=== PATIENT | female | born 1960 | race Two or more races ===

== ENCOUNTER → 2024-08-13 | Outpatient (CLI) | payer BC, SELFPAY ==
--- NOTE | 2024-08-13 09:17 | XR_ITS ---
Examination: CT chest, without intravenous contrast. Sagittal and coronal 2-D reconstructions. Exam date and time: August 13, 2024 1023 hours INDICATIONS: CT chest February 16, 2024 3 mm pulmonary nodule left lower lobe 10 mm pulmonary nodule left lower lobe, chronic SOB coughing beginning May 2024 CTDI:vol (mGy) 13.9 DLP: (mGycm) 483 Technique: Multiple 3.0 mm axial sections of the chest to been obtained. Bone and lung density settings are obtained. Sagittal and coronal 2-D reconstructions have been obtained. Low dose protocols were performed. One or more of the following dose reduction techniques were used; automated exposure control, adjustment of the mA and/or KV according to patient size, use of iterative reconstruction technique. Findings: Small nonspecific mediastinal lymph nodes No thoracic aortic aneurysm dilatation Pulmonary artery segments are not enlarged 4 mm pulmonary nodule left upper lobe image 90 Pulmonary fibrosis pattern 3 mm pulmonary nodule left lower lobe image 235 10 mm pulmonary nodule left lower lobe image 239 No focal liver or splenic lesions Absent gallbladder No pancreatic or adrenal mass Significant renal parenchymal scar formation IMPRESSION: Pulmonary nodules as above, suggest continued 6 month follow-up CT chest without contrast
== END | disposition home or self-care (01) ==
PROVIDERS: PCP Internal Medicine; Referring Provider Nurse Practitioner Women's Health; Visit Provider Nurse Practitioner Women's Health
DX: R91.8 Other nonspecific abnormal finding of lung field (principal)
CPT/HCPCS: 71250

== ENCOUNTER → 2024-08-16 | Outpatient (CLI) | payer BC, SELFPAY ==
[2024-08-16 09:39] LABS: Basophils # (Auto) 0.1 Thou/mm3 (0.0-0.2); Basophils % (Auto) 1 % (0-2.5); Eosinophils # (Auto) 0.4 Thou/mm3 (0.0-0.5); Eosinophils % (Auto) 5 % (0-10); Hematocrit 41.9 % (36.0-46.0); Hemoglobin 13.8 g/dL (12.0-16.0); Immature Granulocytes % (Auto) 0 % (0-0); Immature Granulocytes Auto 0.02 Thou/mm3 (0.00-0.00); Lymphocytes # (Auto) 1.9 Thou/mm3 (1.0-4.8); Lymphocytes % (Auto) 22 % (10-50); Mean Corpuscular HGB Conc 32.9 g/dl (31.0-37.0); Mean Corpuscular Hemoglobin 28.7 pg (25.0-35.0); Mean Corpuscular Volume 87 fL (80-100); Monocytes # (Auto) 0.5 Thou/mm3 (0.0-0.8); Monocytes % (Auto) 6 % (0-12); Neutrophils # (Auto) 5.9 Thou/mm3 (1.8-7.7); Neutrophils % (Auto) 67 % (37-80); Nucleated Red Blood Cell % 0 /100 WBC (0); Platelet Count 367 Thou/mm3 (140-440); RDW Standard Deviation 42.8 fL (36.4-46.3); Red Blood Count 4.81 Miln/mm3 (4.00-5.20); White Blood Count 8.8 Thou/mm3 (3.6-11.0)
[2024-08-16 09:54] LABS: Collection Type, Urine Clean Catch
[2024-08-16 09:55] LABS: Glucose Estimated Average 108 mg/dL (80-131); Hemoglobin A1C 5.4 % Hgb (4.8-6.0)
[2024-08-16 10:05] LABS: Alanine Aminotransferase 21 U/L (10-49); Albumin, Serum 4.5 gm/dL (3.4-4.8); Albumin/Globulin Ratio 1.5 (1.2-2.2); Alkaline Phosphatase 94 U/L (46-116); Anion Gap 6 (7-16); Aspartate Amino Transferase 19 U/L (0-34); BUN/Creatinine Ratio 15 Ratio (12-20); Bilirubin,Total 0.4 mg/dL (0.3-1.2); Blood Urea Nitrogen 15 mg/dL (9-23); Calcium 9.4 mg/dL (8.3-10.6); Calcium (Corrected) 9.4 mg/dL (8.5-10.1); Carbon Dioxide 25.6 mMol/L (20.0-31.0); Chloride 107 mMol/L (98-107); Cholesterol 191 mg/dL (132-200); Globulin 3.1 gm/dL (2.3-3.5); Glucose 105 mg/dL (74-106); HDL Cholesterol 38 mg/dL (40-60); LDL Cholesterol,Calculated 121 mg/dL (0-130); Osmolality,Calculated 278 (275-295); Potassium 3.9 mMol/L (3.4-5.1); Sodium 139 mMol/L (136-145); Thyroid Stimulating Hormone 8.44 uIU/mL (0.55-4.78); Total Protein 7.6 gm/dL (5.7-8.2); Triglycerides 160 mg/dL (30-150); Uric Acid 5.6 mg/dL (3.1-7.8); eGFR > 60 See Note
[2024-08-16 10:10] LABS: Bacteria,Urine Rare; Bilirubin,Urine Negative (Negative); Blood,Urine Negative (Negative); Clarity,Urine Clear (Clear/Hazy); Color,Urine Lt-Yellow (Lt Yel-Yel); Glucose, Urine Negative (Negative); Ketones,Urine Negative (Negative); Leukocyte Esterase,Urine Positive (Negative); Nitrite,Urine Negative (Negative); Protein,Urine Trace (Neg - Trace); RBC,Urine 4 /hpf (0-3); Specific Gravity,Urine 1.018 (1.001-1.035); Squamous Epithelial Cell,Urine 2 /hpf (0-5); Urobilinogen,Urine Negative mg/dL (0.0-1.0); WBC,Urine 26 /hpf (0-5)
[2024-08-16 10:11] LABS: Vitamin B12 476 pg/mL (211-911); Vitamin D 25 Hydroxy Total 25.1 ng/mL (7.3-40.2)
== END | disposition home or self-care (01) ==
LOC: COPL 09:09
PROVIDERS: PCP Internal Medicine; Referring Provider Internal Medicine; Visit Provider Internal Medicine
DX: Z00.00 Encounter for general adult medical examination without abnormal findings (principal); I10 Essential (primary) hypertension; E03.9 Hypothyroidism, unspecified
CPT/HCPCS: 36415; 80053; 80061; 81001; 82306; 82607; 83036; 84443; 84550; 85025

== ENCOUNTER → 2024-09-18 | Outpatient (CLI) | payer BC, SELFPAY ==
--- NOTE | 2024-09-18 11:45 | XR_ITS ---
Examination: Screening digital mammography, bilateral Computer aided detection 3-D breast Tomosynthesis, bilateral Date and time of exam: September 18, 2024 1059 hours Compared to mammograms dating to 05/18/2006 Indication: Screening Technique: Nonmagnified MLO, CC views of the breasts to been obtained, reconstructed from 3-D Tomosynthesis images. R2 computer aided detection program utilized for evaluation of suspicious masses and/or abnormal calcifications. 3-D Tomosynthesis images obtained. Findings: Scattered areas of fibroglandular density. No interval suspicious masses Benign calcifications Impression: BI-RADS category II: Benign Findings. Recommend 1 year follow-up mammogram.
--- NOTE | 2024-09-18 12:00 | XR_ITS ---
Examination: Bone densitometry Date and time of exam:September 10, 2024 1121 hours INDICATIONS: Menopause age 35 vitamin D 4 years levothyroxine 10 years Technique: Lumbar spine and hip total bone mineralization values of an calculated. Peak reference and age match control results have been displayed. Findings: Lumbar spine total bone mineralization is0.832 gm/cm2. This is 2.0 standard deviations below peak reference. This is 0.2 standard deviations below age-matched controls. Hip total bone mineralization is 0.937 gm/cm2 This is 0.2 standard deviations below peak reference. This is 0.9 standard deviations above age-matched controls Impression: There is osteopenia based on lumbar spine measurements. There is osteopenia based on hip measurements Lumbar mineralization is increase 10.4% compared with August 25, 2022 Hip mineralization is decreased 2.9% compared with August 25, 2022
== END | disposition home or self-care (01) ==
LOC: CDIM 10:42
PROVIDERS: PCP Internal Medicine; Referring Provider Internal Medicine; Visit Provider Internal Medicine
DX: Z12.31 Encounter for screening mammogram for malignant neoplasm of breast (principal); R92.323 Mammographic fibroglandular density, bilateral breasts; R92.1 Mammographic calcification found on diagnostic imaging of breast; M85.89 Other specified disorders of bone density and structure, multiple sites
CPT/HCPCS: 77063; 77067; 77080

== ENCOUNTER → 2024-11-07 | Outpatient (CLI) | payer BC, SELFPAY ==
[2024-11-07 10:07] LABS: Collection Type, Urine Clean Catch
[2024-11-07 10:42] LABS: Basophils # (Auto) 0.1 Thou/mm3 (0.0-0.2); Basophils % (Auto) 1 % (0-2.5); Eosinophils # (Auto) 0.5 Thou/mm3 (0.0-0.5); Eosinophils % (Auto) 6 % (0-10); Hematocrit 42.3 % (36.0-46.0); Hemoglobin 13.5 g/dL (12.0-16.0); Immature Granulocytes % (Auto) 0 % (0-0); Immature Granulocytes Auto 0.02 Thou/mm3 (0.00-0.00); Lymphocytes # (Auto) 2.1 Thou/mm3 (1.0-4.8); Lymphocytes % (Auto) 25 % (10-50); Mean Corpuscular HGB Conc 31.9 g/dl (31.0-37.0); Mean Corpuscular Hemoglobin 28.2 pg (25.0-35.0); Mean Corpuscular Volume 88 fL (80-100); Monocytes # (Auto) 0.6 Thou/mm3 (0.0-0.8); Monocytes % (Auto) 7 % (0-12); Neutrophils # (Auto) 5.3 Thou/mm3 (1.8-7.7); Neutrophils % (Auto) 62 % (37-80); Nucleated Red Blood Cell % 0 /100 WBC (0); Platelet Count 358 Thou/mm3 (140-440); RDW Standard Deviation 45.3 fL (36.4-46.3); Red Blood Count 4.79 Miln/mm3 (4.00-5.20); White Blood Count 8.5 Thou/mm3 (3.6-11.0)
[2024-11-07 10:44] LABS: Bilirubin,Urine Negative (Negative); Blood,Urine Negative (Negative); Clarity,Urine Clear (Clear/Hazy); Color,Urine Lt-Yellow (Lt Yel-Yel); Glucose, Urine Negative (Negative); Ketones,Urine Negative (Negative); Leukocyte Esterase,Urine Positive (Negative); Nitrite,Urine Negative (Negative); PH,Urine 6.5 (5.0-7.0); Protein,Urine Trace (Neg - Trace); RBC,Urine 2 /hpf (0-3); Specific Gravity,Urine 1.022 (1.001-1.035); Squamous Epithelial Cell,Urine 4 /hpf (0-5); Urobilinogen,Urine Negative mg/dL (0.0-1.0); WBC,Urine 10 /hpf (0-5)
[2024-11-07 10:51] LABS: Glucose Estimated Average 103 mg/dL (80-131); Hemoglobin A1C 5.2 % Hgb (4.8-6.0)
[2024-11-07 10:58] LABS: Vitamin B12 614 pg/mL (211-911); Vitamin D 25 Hydroxy Total 34.6 ng/mL (7.3-40.2)
[2024-11-07 11:08] LABS: Alanine Aminotransferase 23 U/L (10-49); Albumin, Serum 4.2 gm/dL (3.4-4.8); Albumin/Globulin Ratio 1.4 (1.2-2.2); Alkaline Phosphatase 110 U/L (46-116); Anion Gap 9 (7-16); Aspartate Amino Transferase 23 U/L (0-34); BUN/Creatinine Ratio 19 Ratio (12-20); Bilirubin,Total 0.5 mg/dL (0.3-1.2); Blood Urea Nitrogen 17 mg/dL (9-23); Calcium 9.4 mg/dL (8.3-10.6); Calcium (Corrected) 9.4 mg/dL (8.5-10.1); Carbon Dioxide 25.8 mMol/L (20.0-31.0); Cardiac Risk Estimate 5.4 RATIO (3.7-5.6); Chloride 107 mMol/L (98-107); Cholesterol 206 mg/dL (132-200); Creatinine (Component) 0.9 mg/dL (0.6-1.3); Glucose 94 mg/dL (74-106); HDL Cholesterol 38 mg/dL (40-60); LDL Cholesterol,Calculated 139 mg/dL (0-130); Osmolality,Calculated 284 (275-295); Potassium 4.5 mMol/L (3.4-5.1); Sodium 142 mMol/L (136-145); Thyroid Stimulating Hormone 6.31 uIU/mL (0.55-4.78); Total Protein 7.2 gm/dL (5.7-8.2); Triglycerides 145 mg/dL (30-150); eGFR > 60 See Note
== END | disposition home or self-care (01) ==
LOC: COPL 09:14
PROVIDERS: PCP Internal Medicine; Referring Provider Internal Medicine; Visit Provider Internal Medicine
DX: Z00.00 Encounter for general adult medical examination without abnormal findings (principal); I10 Essential (primary) hypertension
CPT/HCPCS: 36415; 80053; 80061; 81001; 82306; 82607; 83036; 84443; 84550; 85025

== ENCOUNTER → 2025-02-08 | Outpatient (CLI) | payer BC, SELFPAY ==
[2025-02-08 09:59] LABS: Coccid Serology, CF (UCD)* See Sep Rpt; Misc Send Out* See Sep Rpt
[2025-02-08 11:22] LABS: Basophils # (Auto) 0.1 Thou/mm3 (0.0-0.2); Basophils % (Auto) 1 % (0-2.5); Eosinophils # (Auto) 0.4 Thou/mm3 (0.0-0.5); Eosinophils % (Auto) 5 % (0-10); Hematocrit 41.9 % (36.0-46.0); Hemoglobin 13.4 g/dL (12.0-16.0); Immature Granulocytes % (Auto) 0 % (0-0); Immature Granulocytes Auto 0.03 Thou/mm3 (0.00-0.00); Lymphocytes # (Auto) 1.8 Thou/mm3 (1.0-4.8); Lymphocytes % (Auto) 21 % (10-50); Mean Corpuscular Hemoglobin 29.1 pg (25.0-35.0); Mean Corpuscular Volume 91 fL (80-100); Monocytes # (Auto) 0.5 Thou/mm3 (0.0-0.8); Monocytes % (Auto) 6 % (0-12); Neutrophils # (Auto) 5.9 Thou/mm3 (1.8-7.7); Neutrophils % (Auto) 68 % (37-80); Nucleated Red Blood Cell % 0 /100 WBC (0); Platelet Count 324 Thou/mm3 (140-440); RDW Standard Deviation 46.5 fL (36.4-46.3); Red Blood Count 4.61 Miln/mm3 (4.00-5.20); White Blood Count 8.7 Thou/mm3 (3.6-11.0)
[2025-02-08 11:39] LABS: Alanine Aminotransferase 21 U/L (10-49); Albumin, Serum 4.3 gm/dL (3.4-4.8); Albumin/Globulin Ratio 1.5 (1.2-2.2); Alkaline Phosphatase 113 U/L (46-116); Anion Gap 9 (7-16); Aspartate Amino Transferase 25 U/L (0-34); BUN/Creatinine Ratio 15 Ratio (12-20); Bilirubin,Total 0.5 mg/dL (0.3-1.2); Blood Urea Nitrogen 16 mg/dL (9-23); C-Reactive Protein < 0.5 mg/dL (0.0-0.9); Calcium 9.3 mg/dL (8.3-10.6); Calcium (Corrected) 9.3 mg/dL (8.5-10.1); Carbon Dioxide 25.4 mMol/L (20.0-31.0); Chloride 109 mMol/L (98-107); Creatinine (Component) 1.1 mg/dL (0.6-1.3); Globulin 2.9 gm/dL (2.3-3.5); Glucose 105 mg/dL (74-106); Osmolality,Calculated 286 (275-295); Potassium 3.8 mMol/L (3.4-5.1); Sodium 143 mMol/L (136-145); Total Protein 7.2 gm/dL (5.7-8.2); eGFR 56 See Note
[2025-02-08 12:06] LABS: Sed Rate (ESR) 9 mm/hr (0-30)
[2025-02-08 12:13] LABS: Hepatitis A Antibody IgM Non Reactive (Non React)
[2025-02-08 13:55] LABS: RA Screen Positive (Negative)
[2025-02-08 13:56] LABS: Rheumatoid Factor Titer 1:32
[2025-02-14 03:07] LABS: Hepatitis B Virus DNA* NOT DETECTED; Sjogren's antibody (SS-A) <1.0 NEG AI (<1.0 NEGATIVE)
[2025-02-14 07:00] LABS: ANA Screen, IFA POSITIVE (NEGATIVE); ANA Titer >=1:1280 titer; CCP Antibody (IgG)* <16 Units; DNA (ds) Antibody* 1 IU/mL; Hepatitis B DNA PCR NOT DETECTED Log IU/mL; Scl-70 Antibody* <1.0 NEG AI (<1.0 NEGATIVE); Sjogren's Antibody (SS-B) <1.0 NEG AI (<1.0 NEGATIVE); Sm/RNP Antibody 3.7 POS AI (<1.0 NEGATIVE)
[2025-02-14 07:01] LABS: Myeloperoxidase Ab <1.0 AI (<1.0); Proteinase-3 Ab <1.0 AI (<1.0)
== END | disposition home or self-care (01) ==
LOC: COPL 09:29
PROVIDERS: PCP Internal Medicine; Visit Provider Internal Medicine
DX: J84.9 Interstitial pulmonary disease, unspecified (principal)
CPT/HCPCS: 36415; 80053; 85025; 85652; 86021; 86036; 86038; 86140; 86171; 86200; 86225; 86235; 86430; 86431; 86709; 87517

== ENCOUNTER → 2025-02-08 | Outpatient (CLI) | payer BC, SELFPAY ==
--- NOTE | 2025-02-08 14:30 | ECHO_ITS ---
Transthoracic Echo Report Ht (in): 58 Wt (lb): 206 Exam Location: Echo Lab Status: Preadmit Silk Screen Printer Helper: Demetra Finn Indications: Procedure Performed: BP: / HR: Technical Quality: Adequate MEASUREMENTS (Male / Female) Normal Values 2D ECHO LV Diastolic Diameter PLAX 4.0 cm 4.2 - 5.9 / 3.9 - 5.3 cm LV Systolic Diameter PLAX 2.6 cm IVS Diastolic Thickness 1.0 cm 0.6 - 1.0 / 0.6 - 0.9 cm LVPW Diastolic Thickness 1.2 cm 0.6 - 1.0 / 0.6 - 0.9 cm LV Relative Wall Thickness 0.6 LVOT Diameter 1.6 cm LA Volume Index 22.7 cm?/m? 16 - 28 cm?/m? DOPPLER AV Peak Velocity 107.0 cm/s AV Peak Gradient 4.6 mmHg LVOT Peak Velocity 88.3 cm/s LVOT Peak Gradient 3.1 mmHg AV Area Cont Eq pk 1.7 cm? MV Area PHT 2.8 cm? Mitral E Point Velocity 63.5 cm/s Mitral A Point Velocity 70.3 cm/s Mitral E to A Ratio 0.9 LV E' Lateral Velocity 7.0 cm/s Mitral E to LV E' Lateral Ratio 9.1 LV E' Septal Velocity 4.6 cm/s Mitral E to LV E' Septal Ratio 13.9 TR Peak Velocity 229.0 cm/s TR Peak Gradient 21.0 mmHg PV Peak Velocity 77.4 cm/s PV Peak Gradient 2.4 mmHg FINDINGS Left Ventricle Normal left ventricular size and systolic function with no obvious regional wall motion abnormalities. Mild left ventricular hypertrophy. Normal left ventricular diastolic filling pattern for age. The ejection fraction is visually estimated at 60 %. Right Ventricle The right ventricle is mildly enlarged. The estimated right ventricular systolic pressure, 21 mmHg. RAP 5mmHg. Left Atrium The left atrium is normal by two-dimensional, color flow and Doppler imaging with no structural abnormalities, no thrombus formation present. Right Atrium The right atrium is normal by two-dimensional imaging, color flow and Doppler imaging with no structural abnormalities, no thrombus formation present. Atrial Septum The interatrial septum appears normal with no evidence of a shunt. Aorta The aorta is normal by two-dimensional, color flow and Doppler interrogation. Mitral Valve The mitral valve is normal by two-dimensional, color flow and Doppler interrogation. There is trace mitral regurgitation. Aortic Valve The aortic valve is trileaflet and normal by two-dimensional, color flow and Doppler interrogation. There is no significant aortic valve regurgitation. Tricuspid Valve The tricuspid valve is normal by two-dimensional, color flow and Doppler interrogation. There is trace tricuspid regurgitation. Pulmonic Valve The pulmonic valve is not well visualized. There is trace pulmonic regurgitation. Vessels The pulmonary artery appears normal. The inferior vena cava pulmonary and hepatic veins appear normal. Pericardium The pericardium is normal by two-dimensional imaging. There is no significant pericardial effusion. CONCLUSIONS Indications: Dyspnea Normal LV size and function. Mild LVH. Estimated EF 60%. Stage I diastolic dysfunction. Mild dilated RV with normal RV systolic function. Normal RVSP 21mmHg. Trace TR, PI, MR. No Pericardial Effusion. Scott Schulte (Electronically Signed) Final Date: 08 February 2025 20:18
== END | disposition home or self-care (01) ==
LOC: SDIM 13:19
PROVIDERS: PCP Internal Medicine
DX: I08.1 Rheumatic disorders of both mitral and tricuspid valves (principal); I50.30 Unspecified diastolic (congestive) heart failure
CPT/HCPCS: 93306

== ENCOUNTER → 2025-03-14 | Outpatient (CLI) | payer BC, SELFPAY ==
[2025-03-14 08:57] LABS: Quantiferon-TB* See Sep Rpt
== END | disposition home or self-care (01) ==
LOC: COPL 08:15
PROVIDERS: PCP Internal Medicine; Referring Provider Student in an Organized Health Care Education/Training Program; Visit Provider Student in an Organized Health Care Education/Training Program
DX: R06.09 Other forms of dyspnea (principal)
CPT/HCPCS: 86480

== ENCOUNTER → 2025-03-25 | Outpatient (CLI) | payer BC, SELFPAY ==
--- NOTE | 2025-03-25 08:47 | XR_ITS ---
Examination: PA lateral chest 2 views TECHNIQUE: Upright PA lateral chest 2 views Date and time: March 25, 2025 0901 hours Comparison June 20, 2024 INDICATIONS: Dyspnea shortness of breath several months FINDINGS: Scarring versus pneumonia right base obscuring detail right hemidiaphragm. Normal heart size No pulmonary edema. Prominent osteopenia IMPRESSION: Scarring versus pneumonia right base, clinical correlation advised Given the CT chest findings August 13, 2024, consider repeat CT chest without contrast to assess stability of pulmonary nodules
== END | disposition home or self-care (01) ==
LOC: CDIM 08:45
PROVIDERS: PCP Internal Medicine; Referring Provider Student in an Organized Health Care Education/Training Program; Visit Provider Internal Medicine
DX: R91.8 Other nonspecific abnormal finding of lung field (principal)
CPT/HCPCS: 71046

== ENCOUNTER → 2025-04-10 | Outpatient (CLI) | payer BC, SELFPAY ==
--- NOTE | 2025-04-10 08:00 | XR_ITS ---
Examination: CT chest, without intravenous contrast. Sagittal and coronal 2-D reconstructions. Exam date and time: April 10, 2025 0802 hours Comparison August 13, 2024 INDICATIONS: Shortness of breath beginning one year ago, 4 mm pulmonary nodule left upper lobe, 3 mm pulmonary nodule left lower lobe, 10 mm pulmonary nodule left lower lobe on CT chest August 13, 2024. CTDI:vol (mGy) 17.7 DLP: (mGycm) 560 Technique: Multiple 3.0 mm axial sections of the chest to been obtained. Bone and lung density settings are obtained. Sagittal and coronal 2-D reconstructions have been obtained. Low dose protocols were performed. One or more of the following dose reduction techniques were used; automated exposure control, adjustment of the mA and/or KV according to patient size, use of iterative reconstruction technique. Findings: No thoracic aortic aneurysmal dilatation Pulmonary artery segments are not enlarged. No paratracheal tracheobronchial or bronchopulmonary adenopathy. Stable pulmonary nodules left lung No new pulmonary nodules Mild pulmonary fibrosis No visualized liver or splenic lesion Absent gallbladder No pancreatic mass No common bile duct stones Scarring involving the kidneys mild to moderate IMPRESSION: Stable pulmonary nodules left lung, no new pulmonary nodules
== END | disposition home or self-care (01) ==
LOC: CCTX 07:27
PROVIDERS: PCP Internal Medicine
DX: R91.8 Other nonspecific abnormal finding of lung field (principal)
CPT/HCPCS: 71250

== ENCOUNTER → 2025-04-19 | Outpatient (CLI) | payer BC, SELFPAY ==
--- NOTE | 2025-04-19 | XR_ITS ---
Examination: Foot bilateral, 6 views Technique: AP, oblique, lateral views each foot total 6 views Date and time of exam: April 19, 2025, 1256 hours INDICATIONS: Bilateral foot pain 2 years. 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 Moderate osteopenia. 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
--- NOTE | 2025-04-19 | XR_ITS ---
Examination: Bilateral hands, 6 views. Technique: AP, Oblique, Lateral each hand total 6 views Date and time of exam: April 19, 2025 1226 hours INDICATIONS: Bilateral hand pain beginning 2 years ago Findings: Bilateral moderate juxta-articular bone demineralization. Mild diffuse narrowing joints of the wrists and hands bilaterally. Bilateral moderate osteoarthritis first carpometacarpal joints No erosive arthritis. No fractures. No avascular necrosis. No foreign bodies IMPRESSION: Mild diffuse narrowing joints of the wrists and hands bilaterally, no erosive arthritis Bilateral moderate osteoarthritis first carpometacarpal joints
[2025-04-19 13:04] LABS: Misc Send Out* See Sep Rpt
[2025-04-19 13:18] LABS: Basophils # (Auto) 0.1 Thou/mm3 (0.0-0.2); Basophils % (Auto) 1 % (0-2.5); Eosinophils # (Auto) 0.3 Thou/mm3 (0.0-0.5); Eosinophils % (Auto) 3 % (0-10); Hematocrit 41.9 % (36.0-46.0); Hemoglobin 13.3 g/dL (12.0-16.0); Immature Granulocytes Auto 0.02 Thou/mm3 (0.00-0.00); Lymphocytes # (Auto) 2.3 Thou/mm3 (1.0-4.8); Lymphocytes % (Auto) 27 % (10-50); Mean Corpuscular HGB Conc 31.7 g/dl (31.0-37.0); Mean Corpuscular Hemoglobin 28.7 pg (25.0-35.0); Mean Corpuscular Volume 90 fL (80-100); Monocytes # (Auto) 0.6 Thou/mm3 (0.0-0.8); Monocytes % (Auto) 7 % (0-12); Neutrophils # (Auto) 5.4 Thou/mm3 (1.8-7.7); Neutrophils % (Auto) 63 % (37-80); Nucleated Red Blood Cell # 0.00 Thou/mm3 (0.00-0.00); Nucleated Red Blood Cell % 0 /100 WBC (0); Platelet Count 331 Thou/mm3 (140-440); RDW Standard Deviation 45.9 fL (36.4-46.3); Red Blood Count 4.64 Miln/mm3 (4.00-5.20); White Blood Count 8.7 Thou/mm3 (3.6-11.0)
[2025-04-19 13:49] LABS: Alanine Aminotransferase 18 U/L (10-49); Albumin, Serum 4.3 gm/dL (3.4-4.8); Albumin/Globulin Ratio 1.7 (1.2-2.2); Alkaline Phosphatase 99 U/L (46-116); Anion Gap 10 (7-16); Aspartate Amino Transferase 19 U/L (0-34); BUN/Creatinine Ratio 20 Ratio (12-20); Bilirubin,Total 0.5 mg/dL (0.3-1.2); Blood Urea Nitrogen 18 mg/dL (9-23); C-Reactive Protein < 0.5 mg/dL (0.0-0.9); Calcium 9.7 mg/dL (8.3-10.6); Calcium (Corrected) 9.7 mg/dL (8.5-10.1); Carbon Dioxide 25.0 mMol/L (20.0-31.0); Chloride 109 mMol/L (98-107); Creatinine (Component) 0.9 mg/dL (0.6-1.3); Globulin 2.5 gm/dL (2.3-3.5); Glucose 95 mg/dL (74-106); Osmolality,Calculated 288 (275-295); Potassium 4.3 mMol/L (3.4-5.1); Sodium 144 mMol/L (136-145); Total Protein 6.8 gm/dL (5.7-8.2); eGFR > 60 See Note
[2025-04-19 13:50] LABS: Sed Rate (ESR) 5 mm/hr (0-30)
[2025-04-19 14:42] LABS: Hepatitis A Antibody IgM Non Reactive (Non React); Hepatitis B Core Antibody IgM Non Reactive (Non React); Hepatitis B Surface Antigen Non Reactive (Non React); Hepatitis C Antibody Non Reactive (Non React)
[2025-04-19 16:10] LABS: RA Screen Positive (Negative)
[2025-04-19 16:11] LABS: Rheumatoid Factor Titer 1:64
[2025-04-29 08:47] LABS: CCP Antibody (IgG)* <16 Units
== END | disposition home or self-care (01) ==
LOC: CDIM 11:26 → COPL 12:44
PROVIDERS: PCP Internal Medicine; Visit Provider Radiology Diagnostic Radiology
DX: M21.612 Bunion of left foot (principal); M21.611 Bunion of right foot; M19.072 Primary osteoarthritis, left ankle and foot; M19.071 Primary osteoarthritis, right ankle and foot; M77.32 Calcaneal spur, left foot; M77.31 Calcaneal spur, right foot; M25.842 Other specified joint disorders, left hand; M25.841 Other specified joint disorders, right hand; M25.832 Other specified joint disorders, left wrist; M25.831 Other specified joint disorders, right wrist; M18.0 Bilateral primary osteoarthritis of first carpometacarpal joints; Z01.812 Encounter for preprocedural laboratory examination; R76.8 Other specified abnormal immunological findings in serum; R53.82 Chronic fatigue, unspecified
CPT/HCPCS: 36415; 73130; 73630; 80053; 80074; 82550; 85025; 85652; 86140; 86200; 86430; 86431